=== PATIENT | female | born 1950 | race Caucasian/White ===

== ENCOUNTER 2016-10-25 01:38 | Emergency (ER) | payer OTHER ==
[~2016-10-25 01:38] MED LIST: ALEVE220 M1 PO; ASPIR 8181 MG PO; CALCIUM + VITA1 EACH PO; CALCIUM500 M1 PO; CRESTOR10 MG PO; CRESTOR20 MG PO; ESTRACE0.5 MG; FISH OIL 1,0001 CA PO; LORCET HD CAPSU1 CAP; MULTIVITAMIN1 TAB PO; NORCO 10/325 TA1 TAB PO; NORCO 5/325 TAB1 TAB PO; PROTONIX40 MG PO; QUESTRAN POWDE378 GM; TRAVATAN 0.0042.5 ML OP; ZOFRAN4 MG PO; ZOLOFT100 MG PO
== END 2016-10-25 02:28 | disposition left against medical advice (07) ==
LOC: EDMED 01:38
DX: R10.9 Unspecified abdominal pain (principal); Z53.29 Procedure and treatment not carried out because of patient's decision for other reasons